=== PATIENT | female | born 1995 | race African-American/Black ===

== ENCOUNTER 2018-05-25 11:45 | Emergency (ER) | payer OTHER ==
[2018-05-25 12:48] VITALS: BP 101/59
--- NOTE | 2018-05-25 12:57 | UC ---
Complaint Female HPI - HPI Summary HPI Summary: 2 NIGHTS AGO STARTED W/ L HIP PAIN AND BACK/SIDE PAIN. sHE DENIES FALLING. Able to walk. movement makes it worse, rest makes it better. - History Of Current Complaint Chief Complaint: UCBackPain Stated Complaint: LOWER BACK PAIN RADIATING TO LEGS Time Seen by Provider: 05/25/18 12:56 Hx Obtained From: Patient Hx Last Menstrual Period: Depo-Provera ?: No - but she is . Pain Intensity: 10 Pain Scale Used: 0-10 Numeric Character: Sharp, Cramping Aggravating Factor(s): Movement Alleviating Factor(s): Nothing - Allergies/Home Medications Allergies/Adverse Reactions: Allergies Allergy/AdvReac Type Severity Reaction Status Date / Time No Known Allergies Allergy Verified 05/25/18 12:40 Home Medications: Home Medications Acetaminophen TAB* [Tylenol TAB*] 650 mg PO Q4H PRN 05/25/18 [History Confirmed 05/25/18] Escitalopram * [Lexapro *] 20 mg PO DAILY 05/25/18 [History Confirmed 05/25/18] medroxyPROGESTERone ACETATE* [DEPO-Provera] 150 mg IM Q90D 05/25/18 [History Confirmed 05/25/18] PMH/Surg Hx/FS Hx/Imm Hx - Additional Past Medical History Additional PMH: CURRENTLY BREAST FEEDING. Previously Healthy: Yes - Surgical History Surgical History: None - Social History Alcohol Use: None Substance Use Type: None Smoking Status (MU): Light Every Day Tobacco Smoker Type: eCigarettes Length of Time of Smoking/Using Tobacco: Since Age 20 Review of Systems All Other Systems Reviewed And Are Negative: Yes Constitutional: Negative: Fever, Chills, Fatigue Respiratory: Negative: Shortness Of Breath, Other - denies chest heaviness or LE swelling. Gastrointestinal: Positive: Other - L flank pain Genitourinary: Negative: Dysuria, Hematuria, Frequency, Urgency, Vaginal/Penile Discharge Motor: Positive: Other - L hip pain Neurovascular: Negative: Other - no change in gait Musculoskeletal: Negative: Decreased ROM - at L hip Neurological: Negative: Weakness, Paresthesia, Numbness Physical Exam Triage Information Reviewed: Yes Appearance: Well-Appearing Vital Signs: Initial Vital Signs Temp 97.9 F 05/25/18 12:36 Pulse 88 05/25/18 12:36 Resp 16 05/25/18 12:36 BP 101/59 05/25/18 12:36 Pulse Ox 100 05/25/18 12:36 Vital Signs Reviewed: Yes Respiratory Exam: Normal Cardiovascular Exam: Normal Abdomen Description: Positive: Nontender, Soft, CVA Tenderness (L). Negative: CVA Tenderness (R), Distended, Guarding, Peritoneal Signs Musculoskeletal: Positive: ROM Intact - L hip, Other: - tenderness at L hip crest and below Complaint Female Dx - Course Course Of Treatment: L sided hip pain that radiates to her L flank and ant. abd. x2 nights ago. Of note it is worse w/ movement or when she carries her child on that hip; she is 10mo. old and very heavy per pt. Afebrile and good vitals. UA showed no obvious UTI but will tx empirically. Neg test . ON exam there was msk tenderness at hip , some at L flank and also pain in L flank when she raised her arm. NO resp. symptoms and otherwise exam unremarkable. Plan is to tx for possible UTI, discussed msk tx as well of hip. IF worsening she should go to ED or f/u w her primary care. - Differential Dx/Diagnosis Differential Diagnosis/HQI/PQRI: Ovarian Cyst, Pelvic Inflammatory Disease, , Renal Colic, Sexually Transmitted Disease, Urinary Tract Infection Provider Diagnosis: Flank pain Discharge - Sign-Out/Discharge Documenting (check all that apply): Patient Departure All imaging exams completed and their final reports reviewed: No Studies - Discharge Plan Condition: Good Disposition: HOME Prescriptions: Nitrofurantoin Monohyd/M-Cryst [Macrobid 100 mg Capsule] 100 mg PO BID 10 Days # 20 cap Patient Education Materials: Flank Pain (ED) Referrals: Carlo Bridges MD [Primary Care Provider] - Additional Instructions: We discussed that this could be muscular or a UTI. If after the antibiotics please follow up with your pcp . - Billing Disposition and Condition Condition: GOOD Disposition: Home
--- NOTE | 2018-05-27 10:09 | UC ---
- Progress Note Progress Note: cx neg for infection dc macrobid Course/Dx - Diagnoses Provider Diagnoses: Flank pain Discharge - Sign-Out/Discharge Documenting (check all that apply): Post-Discharge Follow Up All imaging exams completed and their final reports reviewed: No Studies - Discharge Plan Condition: Good Disposition: HOME Prescriptions: Nitrofurantoin Monohyd/M-Cryst [Macrobid 100 mg Capsule] 100 mg PO BID 10 Days # 20 cap Patient Education Materials: Flank Pain (ED) Referrals: Carlo Bridges MD [Primary Care Provider] - Additional Instructions: We discussed that this could be muscular or a UTI. If after the antibiotics please follow up with your pcp . - Billing Disposition and Condition Condition: GOOD Disposition: Home
== END 2018-05-25 13:43 | disposition home or self-care (01) ==
LOC: UCCORT 11:45
DX: R10.9 Unspecified abdominal pain (principal); M54.5 Low back pain; M25.552 Pain in left hip; F17.290 Nicotine dependence, other tobacco product, uncomplicated
CPT/HCPCS: 81003; 84702; 87086; 99212; G0463

== ENCOUNTER 2022-01-13 18:27 | Inpatient (IN) ==
[2022-01-13] MEDS ORDERED: Buffered Lidocaine 1% SYRIN 1 ml INTRADERM ONE (19:22)
[2022-01-13] MEDS ORDERED: Dinoprostone 10 MG VAG.SUPP VAGINAL ONE (19:22)
[2022-01-13] MEDS ORDERED: Lactated Ringers 1000 ml BAG 1,000 ML IV ONE (19:22)
[2022-01-13] MEDS ORDERED: Lactated Ringers 1000 ml BAG 1,000 ML IV SCH (20:00)
[2022-01-13 20:15] LABS: Urine Benzodiazepine Screen None Detected (None Detect); Urine Cannabinoids Screen None Detected (None Detect); Urine Opiates Screen None Detected (None Detect)
[2022-01-14] MEDS ORDERED: Nalbuphine 10 MG/ML 1 ML VIAL IM ONE (00:41)
[2022-01-14] MEDS ORDERED: Promethazine INJ(RESTRICTED) 25 MG/ML 1 ml VIAL IM ONE (00:41)
[2022-01-14] MEDS ORDERED: Nalbuphine 10 MG/ML 1 ML VIAL IV ONE (01:20)
[2022-01-14] MEDS ORDERED: Promethazine INJ(RESTRICTED) 25 MG/ML 1 ml VIAL IV ONE (01:20)
[2022-01-14 01:47] LABS: ABS Basophils 0.1 10^3/ul (0-0.2); ABS Eosinophils 0.1 10^3/ul (0-0.6); ABS Lymphocytes 2.1 10^3/ul (1.0-4.8); ABS Monocytes 1.1 10^3/ul (0-0.8); ABS Neutrophils 6.7 10^3/ul (1.5-7.7); Hematocrit 39 % (35-47); Hemoglobin 12.6 g/dL (12.0-16.0); Lymphocyte % 20.4 %; Mean Corpuscular HGB Conc 32 g/dL (31-36); Mean Corpuscular Hemoglobin 28 pg (27-31); Mean Corpuscular Volume 86 fL (80-97); Mean Platelet Volume 9.7 fL (7.4-10.4); Platelet Count 217 10^3/uL (150-450); Red Blood Count 4.52 10^6 /uL (3.70-4.87); Red Cell Distribution Width 15 % (10-15); White Blood Count 10.1 10^3/uL (3.5-10.8)
[2022-01-14] MEDS ORDERED: Lidocaine 1% w EPI 1:200,000 SDV 30 ML VIAL ONE (03:48)
[2022-01-14] MEDS ORDERED: OBEPIDURAL (200 ML) 200 ML EPIDURAL ONE (03:49)
[2022-01-14] MEDS ORDERED: Sodium Citrate/Citric Acid LIQ 15 ML UDC PO PRN (04:55)
[2022-01-14] MEDS ORDERED: Phenylephrine 40 mcg/mL 10mL (400mcg) SYRINGE IV PUSH PRN ×2 (04:55)
[2022-01-14] MEDS ORDERED: Lactated Ringers 1000 ml BAG 1,000 ML IV ONE (04:55)
[2022-01-14] MEDS ORDERED: Lactated Ringers 1000 ml BAG 500 ML IV PRN ×2 (04:55)
[2022-01-14 04:58] LABS: Urine Appearance Clear; Urine Bilirubin Negative (Negative); Urine Blood Negative (Negative); Urine Color Straw; Urine Glucose Negative (Negative); Urine Ketones Negative (Negative); Urine Nitrite Negative (Negative); Urine Protein Negative (Negative); Urine Specific Gravity 1.011 (1.002-1.030); Urine Urobilinogen Negative (Negative)
[2022-01-14] MEDS ORDERED: Lactated Ringers 1000 ml BAG 1,000 ML IV SCH ×2 (05:00→07:00)
[2022-01-14] MEDS ORDERED: OBEPIDURAL (200 ML) 200 ML EPIDURAL SCH (05:00)
[2022-01-14] MEDS ORDERED: Dibucaine 1% OINT 28.35 GM TUBE PR PRN (06:44)
[2022-01-14] MEDS ORDERED: Glycerin ADULT 2.4 gm SUPP PR PRN (06:44)
[2022-01-14] MEDS ORDERED: Witch Hazel PAD JAR TOPICAL PRN (06:44)
[2022-01-15 07:27] LABS: ABS Eosinophils 0.3 10^3/ul (0-0.6); ABS Lymphocytes 2.5 10^3/ul (1.0-4.8); ABS Monocytes 1.1 10^3/ul (0-0.8); ABS Neutrophils 8.6 10^3/ul (1.5-7.7); Eosinophil % 2.6 %; Hematocrit 35 % (35-47); Hemoglobin 11.3 g/dL (12.0-16.0); Lymphocyte % 19.7 %; Mean Corpuscular HGB Conc 33 g/dL (31-36); Mean Corpuscular Hemoglobin 28 pg (27-31); Mean Corpuscular Volume 87 fL (80-97); Mean Platelet Volume 9.5 fL (7.4-10.4); Platelet Count 181 10^3/uL (150-450); Red Blood Count 3.97 10^6 /uL (3.70-4.87); Red Cell Distribution Width 15 % (10-15); White Blood Count 12.6 10^3/uL (3.5-10.8)
[2022-01-16 08:36] VITALS: BP 119/55
== END 2022-01-16 11:57 | disposition home or self-care (01) | DRG 560 ==
LOC: MCHOBOUT 18:27 → MCHOB 19:21
PROVIDERS: ADMIT Midwife; ATTEND Midwife